=== PATIENT | female | born 2005 | race Caucasian/White ===

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

== ENCOUNTER 2023-04-30 09:25 | Emergency (ER) | payer OTHER ==
[2023-04-30] MEDS ORDERED: SODIUM CHLORIDE 0.9% 1,000 ML IV STA (09:42)
[2023-04-30] MEDS ORDERED: ONDANSETRON 4 MG/2 ML VIAL IVP STA (09:42)
[2023-04-30] MEDS ORDERED: HYDROCORTISONE SUCCINATE 100 MG/2 ML VIAL IV STA (09:43)
[2023-04-30 09:44] VITALS: TEMP 97.8
[2023-04-30] MEDS ORDERED: FAMOTIDINE 20 MG/2 ML VIAL IV STA (09:44)
--- NOTE | 2023-04-30 10:02 | ED ---
Nausea/Vomiting/Diarrhea HPI - General Chief complaint: Nausea/Vomiting/Diarrhea Stated complaint: vomiting Time Seen by Provider: 04/30/23 09:35 Source: patient, RN notes reviewed Mode of arrival: ambulatory Limitations: no limitations - History of Present Illness Initial comments: This is a 17-year-old female who presents to the emergency department for nausea, vomiting, and abdominal pain. States that for about 12 hours she's had pain in the epigastric region and has also proceeded to vomit multiple times. Her mother states that she has a history of adrenal insufficiency and is unable to take her hydrocortisone, and they're worried about her going into a crisis. She does have Zofran at home, but states that this has not been effective, and usually is not effective when she has these episodes. Denies any sick contacts. MD complaint: nausea, vomiting, abdominal pain - Related Data Home Medications Medication Instructions Recorded Confirmed Hydrocortisone [Cortef] 10 mg PO QAM 08/30/16 07/30/22 Cuvitru 10 gm IV SA 07/30/22 07/30/22 Hydrocortisone [Cortef] 7.5 mg PO HS 07/30/22 07/30/22 Levothyroxine Sodium [Synthroid] 62.5 mcg PO DAILY 07/30/22 07/30/22 Previous Rx's Medication Instructions Recorded Ondansetron Odt [Zofran Odt] 4 mg PO Q8HR PRN 2 Days #6 tab 07/30/22 Sulfamethox-Tmp 800-160Mg [Bactrim 1 tab PO Q12HR 7 Days #14 tab 07/30/22 DS 800-160 mg] Ondansetron Odt [Zofran Odt] 4 mg PO Q8HR PRN #20 tab 04/30/23 Prochlorperazine Suppository 25 mg RECTAL BID PRN #12 supp 04/30/23 [Compazine] Allergies Allergy/AdvReac Type Severity Reaction Status Date / Time No Known Allergies Allergy Verified 04/30/23 09:32 Review of Systems ROS Statement: Those systems with pertinent positive or pertinent negative responses have been documented in the HPI. ROS Other: All systems not noted in ROS Statement are negative. Past Medical History Additional Past Medical History / Comment(s): Common variable immune deficiency; adrenal insufficiency; Hashimotos Thyroiditis, alopecia, psoriasis History of Any Multi-Drug Resistant Organisms: None Reported Past Surgical History: No Surgical Hx Reported Past Psychological History: No Psychological Hx Reported Smoking Status: Never smoker Past Alcohol Use History: None Reported Past Drug Use History: None Reported General Exam Limitations: no limitations General appearance: alert, in no apparent distress Head exam: Present: atraumatic, normocephalic, normal inspection Respiratory exam: Present: normal lung sounds bilaterally. Absent: respiratory distress, wheezes, rales, rhonchi, stridor Cardiovascular Exam: Present: regular rate, normal rhythm, normal heart sounds. Absent: systolic murmur, diastolic murmur, rubs, gallop, clicks GI/Abdominal exam: Present: soft, tenderness (epigastric), normal bowel sounds. Absent: distended Neurological exam: Present: alert, oriented X3, CN II-XII intact Psychiatric exam: Present: normal affect, normal mood Skin exam: Present: warm, dry, intact, normal color. Absent: rash Course Vital Signs 04/30/23 04/30/23 04/30/23 09:29 10:22 12:15 Temperature 97.8 F Pulse Rate 85 67 85 Respiratory 22 22 20 Rate Blood Pressure 89/63 99/64 93/59 O2 Sat by Pulse 100 99 99 Oximetry 04/30/23 13:02 Temperature Pulse Rate 72 Respiratory 16 Rate Blood Pressure 93/56 O2 Sat by Pulse 100 Oximetry Medical Decision Making - Medical Decision Making This is a 17-year-old female who presents to the emergency department for abdominal pain, nausea, and vomiting. Was pt. sent in by a medical professional or institution? @ -No Did you speak to anyone other than the patient for history? @ -Her mother provided the information about her being unable to take her hydrocortisone. Did you review nursing and triage notes? @ -Yes, and I agree, it is accurate with regards to the patient's symptoms. Were old charts reviewed? @ -No Differential Diagnosis? @ -Differential Abdominal Pain Women: Appendicitis, Cholecystitis, diverticulosis, ischemic bowel, pancreatitis, hepatitis, UTI, gastroenteritis, AAA, incarcerated hernia, bowel obstruction, constipation, inflammatory bowel, hepatitis, peptic ulcer disease, splenic infarction, perforated viscus, vulvitis, ovarian torsion, PID, kidney stone, placenta abruption, this is not meant to be an all-inclusive list EKG interpreted by me (3pts min.)? @ -Not obtained X-rays interpreted by me (1pt min.)? @ -Not obtained CT interpreted by me (1pt min.)? @ -Not obtained U/S interpreted by me (1pt. min.)? @ -Gallbladder ultrasound obtained. My interpretation identifies no evidence of cholelithiasis. What testing was considered but not performed? (CT, X-rays, U/S, labs)? Why? @ -None What meds were considered but not given? Why? @ -None Did you discuss the management of the patient with other professionals? @ -No Did you reconcile home meds? @ -No Was smoking cessation discussed for >3mins.? @ -No Was critical care preformed (if so, how long)? @ -No Were there social determinants of health that impacted care today? How? (Homelessness, low income, unemployed, alcoholism, drug addiction, transportation, low edu. Level, literacy, decrease access to med. care, usp, rehab)? @ -No Was there de-escalation of care discussed even if they declined? (Discuss DNR or withdrawal of care, Hospice)? @ -No What co-morbidities impacted this encounter? (DM, HTN, Smoking, COPD, CAD, Cancer, CVA, Hep., AIDS, mental health diagnosis, sleep apnea, morbid obesity)? @ -Adrenal insufficiency Was patient admitted / discharged? @ -Discharged. Lab work obtained revealing leukocytosis and a mild elevation in liver enzymes. However, liver enzymes have been elevated for her in the past and have been higher than they are now. Gallbladder ultrasound obtained due to the associated epigastric pain. This revealed no acute process. Patient treated with IV fluids, Zofran, and Pepcid. She was also given a dose of hydrocortisone due to adrenal insufficiency. She did have some residual nausea which was treated well with Compazine. At that point she was tolerating oral intake and felt stable for discharge home. Prescription for zofran and compazine suppositories provided with dosing instructions reviewed. Otherwise advised she slowly advance her diet as tolerated and remain well-hydrated. Undiagnosed new problem with uncertain prognosis? @ -None Drug Therapy requiring intensive monitoring for toxicity (Heparin, Nitro, Insulin, Cardizem)? @ -None Were any procedures done? @ -None Diagnosis/symptom? @ -Gastroenteritis Acute, or Chronic, or Acute on Chronic? @ -Acute Uncomplicated (without systemic symptoms) or Complicated (systemic symptoms)? @ -Uncomplicated Side effects of treatment? @ -None Exacerbation, Progression, or Severe Exacerbation] @ -Not applicable Poses a threat to life or bodily function? @ -No Return precautions reviewed in depth, the patient is instructed to return to the emergency department with any new, worsening, or concerning symptoms. Patient verbalized understanding. This case was discussed in detail with the attending ED physician, Dr. Benz. Presentation, findings, and treatment plan discussed in detail as well. - Lab Data Result diagrams: 04/30/23 10:00 04/30/23 10:00 Lab Results 04/30/23 04/30/23 04/30/23 Range/Units 10:00 10:00 12:16 WBC 13.9 H (4.0-11.0) k/uL RBC 4.44 (3.80-5.40) m/uL Hgb 13.0 (11.4-16.0) gm/dL Hct 37.1 (34.0-46.0) % MCV 83.6 (80.0-100.0) fL MCH 29.4 (25.0-35.0) pg MCHC 35.1 (31.0-37.0) g/dL RDW 13.0 (11.5-15.5) % Plt Count 482 H (150-450) k/uL MPV 8.0 Neutrophils % 35 % Lymphocytes % 53 % Monocytes % 7 % Eosinophils % 1 % Basophils % 0 % Neutrophils # 4.9 (1.3-7.7) k/uL Lymphocytes # 7.3 H (1.0-4.8) k/uL Monocytes # 1.0 (0-1.0) k/uL Eosinophils # 0.2 (0-0.7) k/uL Basophils # 0.1 (0-0.2) k/uL Manual Slide Review Performed Reactive Lymphocytes Present RBC Morphology Normal Sodium 137 (137-145) mmol/L Potassium 3.8 (3.5-5.1) mmol/L Chloride 101 (98-107) mmol/L Carbon Dioxide 23 (22-30) mmol/L Anion Gap 13 mmol/L BUN 14 (7-17) mg/dL Creatinine 0.57 (0.52-1.04) mg/dL Est GFR (CKD-EPI)AfAm >90 (>60 ml/min/1.73 sqM) Est GFR (CKD-EPI)NonAf >90 (>60 ml/min/1.73 sqM) Glucose 88 (74-99) mg/dL Calcium 9.8 (8.4-10.2) mg/dL Total Bilirubin 0.8 (0.2-1.3) mg/dL AST 46 H (14-36) U/L ALT 35 H (4-34) U/L Alkaline Phosphatase 98 (38-126) U/L Total Protein 7.6 (6.3-8.2) g/dL Albumin 4.5 (3.5-5.0) g/dL Amylase 66 (30-110) U/L Lipase 60 (23-300) U/L HCG, Qual Not Detected Urine Color Yellow Urine Appearance Clear (Clear) Urine pH 7.0 (5.0-8.0) Ur Specific [place] 1.022 (1.001-1.035) Urine Protein Negative (Negative) Urine Glucose (UA) Negative (Negative) Urine Ketones Negative (Negative) Urine Blood Negative (Negative) Urine Nitrite Negative (Negative) Urine Bilirubin Negative (Negative) Urine Urobilinogen <2.0 (<2.0) mg/dL Ur Leukocyte Esterase Negative (Negative) Urine Opiates Screen (NotDetected) Ur Oxycodone Screen (NotDetected) Urine Methadone Screen (NotDetected) Ur Propoxyphene Screen (NotDetected) Ur Barbiturates Screen (NotDetected) U Tricyclic Antidepress (NotDetected) Ur Phencyclidine Scrn (NotDetected) Ur Amphetamines Screen (NotDetected) U Methamphetamines Scrn (NotDetected) U Benzodiazepines Scrn (NotDetected) Urine Cocaine Screen (NotDetected) U Marijuana (THC) Screen (NotDetected) 04/30/23 Range/Units 12:16 WBC (4.0-11.0) k/uL RBC (3.80-5.40) m/uL Hgb (11.4-16.0) gm/dL Hct (34.0-46.0) % MCV (80.0-100.0) fL MCH (25.0-35.0) pg MCHC (31.0-37.0) g/dL RDW (11.5-15.5) % Plt Count (150-450) k/uL MPV Neutrophils % % Lymphocytes % % Monocytes % % Eosinophils % % Basophils % % Neutrophils # (1.3-7.7) k/uL Lymphocytes # (1.0-4.8) k/uL Monocytes # (0-1.0) k/uL Eosinophils # (0-0.7) k/uL Basophils # (0-0.2) k/uL Manual Slide Review Reactive Lymphocytes RBC Morphology Sodium (137-145) mmol/L Potassium (3.5-5.1) mmol/L Chloride (98-107) mmol/L Carbon Dioxide (22-30) mmol/L Anion Gap mmol/L BUN (7-17) mg/dL Creatinine (0.52-1.04) mg/dL Est GFR (CKD-EPI)AfAm (>60 ml/min/1.73 sqM) Est GFR (CKD-EPI)NonAf (>60 ml/min/1.73 sqM) Glucose (74-99) mg/dL Calcium (8.4-10.2) mg/dL Total Bilirubin (0.2-1.3) mg/dL AST (14-36) U/L ALT (4-34) U/L Alkaline Phosphatase (38-126) U/L Total Protein (6.3-8.2) g/dL Albumin (3.5-5.0) g/dL Amylase (30-110) U/L Lipase (23-300) U/L HCG, Qual Urine Color Urine Appearance (Clear) Urine pH (5.0-8.0) Ur Specific [place] (1.001-1.035) Urine Protein (Negative) Urine Glucose (UA) (Negative) Urine Ketones (Negative) Urine Blood (Negative) Urine Nitrite (Negative) Urine Bilirubin (Negative) Urine Urobilinogen (<2.0) mg/dL Ur Leukocyte Esterase (Negative) Urine Opiates Screen Not Detected (NotDetected) Ur Oxycodone Screen Not Detected (NotDetected) Urine Methadone Screen Not Detected (NotDetected) Ur Propoxyphene Screen Not Detected (NotDetected) Ur Barbiturates Screen Not Detected (NotDetected) U Tricyclic Antidepress Not Detected (NotDetected) Ur Phencyclidine Scrn Not Detected (NotDetected) Ur Amphetamines Screen Not Detected (NotDetected) U Methamphetamines Scrn Not Detected (NotDetected) U Benzodiazepines Scrn Not Detected (NotDetected) Urine Cocaine Screen Not Detected (NotDetected) U Marijuana (THC) Screen Not Detected (NotDetected) - Radiology Data Radiology results: report reviewed, image reviewed Disposition Clinical Impression: Gastroenteritis Disposition: HOME SELF-CARE Instructions (If sedation given, give patient instructions): Gastroenteritis (ED), Acute Nausea and Vomiting (ED) Additional Instructions: Return to the emergency department with any new, worsening, or concerning symptoms. You can take the Zofran up to every 8 hours as needed for nausea and vomiting. The Compazine suppositories can also be used twice daily for the nausea and vomiting. Slowly advance your diet as tolerated and remain well- hydrated. Follow up with your primary care provider in 1-2 days. Prescriptions: Prochlorperazine Suppository [Compazine] 25 mg RECTAL BID PRN #12 supp PRN Reason: Nausea And Vomiting Ondansetron Odt [Zofran Odt] 4 mg PO Q8HR PRN #20 tab PRN Reason: Nausea And Vomiting Is patient prescribed a controlled substance at d/c from ED?: No Referrals: Lauren Rosario MD [Primary Care Provider] - 1-2 days
[2023-04-30 10:11] LABS: Basophils # (A) 0.1 k/uL (0-0.2); Basophils % (A) 0 %; Eosinophils # (A) 0.2 k/uL (0-0.7); Eosinophils % (A) 1 %; HCT 37.1 % (34.0-46.0); Lymphocytes # (A) 7.3 k/uL (1.0-4.8); Lymphocytes % (A) 53 %; MCH 29.4 pg (25.0-35.0); MCHC 35.1 g/dL (31.0-37.0); MCV 83.6 fL (80.0-100.0); Monocytes % (A) 7 %; Neutrophils # (A) 4.9 k/uL (1.3-7.7); Neutrophils % (A) 35 %; Platelet Count 482 k/uL (150-450); RBC 4.44 m/uL (3.80-5.40); WBC 13.9 k/uL (4.0-11.0)
[2023-04-30 10:32] LABS: HCG,Qualitative Serum Not Detected
[2023-04-30 10:33] LABS: ALT 35 U/L (4-34); AST 46 U/L (14-36); African American GFR (CKD) >90 (>60 ml/min/1.73 sqM); Albumin 4.5 g/dL (3.5-5.0); Alkaline Phosphatase 98 U/L (38-126); Amylase 66 U/L (30-110); Anion Gap 13 mmol/L; Blood Urea Nitrogen 14 mg/dL (7-17); Calcium 9.8 mg/dL (8.4-10.2); Carbon Dioxide 23 mmol/L (22-30); Chloride 101 mmol/L (98-107); Glucose 88 mg/dL (74-99); Lipase 60 U/L (23-300); Non-African American GFR(CKD) >90 (>60 ml/min/1.73 sqM); Potassium 3.8 mmol/L (3.5-5.1); Sodium 137 mmol/L (137-145); Total Bilirubin 0.8 mg/dL (0.2-1.3); Total Protein 7.6 g/dL (6.3-8.2)
[2023-04-30 11:05] LABS: RBC Morphology Normal; Reactive Lymphocytes Present
[2023-04-30] MEDS ORDERED: PROCHLORPERAZINE INJ 10 MG/2 ML VIAL IVP STA (11:27)
[2023-04-30] MEDS ORDERED: KETOROLAC 15 MG/ML 1 ML VIAL IVP STA (11:27)
--- NOTE | 2023-04-30 11:34 | US ---
EXAMINATION TYPE: US gallbladder DATE OF EXAM: 04/30/2023 COMPARISON: 07/30/[address] CLINICAL INDICATION: Female, 17 years old with history of Epigastric pain; epigastric pain, nausea an d vomiting, similar to episode on 07/30/22, pt is seeing forklift picker TECHNIQUE: Multiple sonographic images of the right upper quadrant are obtained. FINDINGS: EXAM MEASUREMENTS: Liver Length: 18.8cm Gallbladder Wall: 0.2 cm CBD: 0.52 cm (0.24cm in July) Right Kidney: 11.3x3.6x5.0 cm CLEAN UP WORKER NOTES: Pancreas: Tail obscured by overlying bowel gas Liver: wnl Gallbladder: wnl CBD: wnl but more dilated than in July Right Kidney: wnl IMPRESSION: 1. Hepatomegaly. 2. No gallstones. Common bile duct is at the upper limits of normal.
[2023-04-30 12:25] LABS: Appearance,Urine Clear (Clear); Bilirubin,Urine Negative (Negative); Blood,Urine Negative (Negative); Color,Urine Yellow; Glucose,Urine (UA) Negative (Negative); Ketones,Urine Negative (Negative); Leukocyte Esterase,Urine Negative (Negative); Nitrite,Urine Negative (Negative); Protein,Urine Negative (Negative); Specific Gravity,Urine 1.022 (1.001-1.035); Urobilinogen,Urine <2.0 mg/dL (<2.0)
[2023-04-30 12:35] LABS: Amphetamine Screen,Urine Not Detected (NotDetected); Barbiturate Screen,Urine Not Detected (NotDetected); Benzodiazepines Screen,Urine Not Detected (NotDetected); Cocaine Screen,Urine Not Detected (NotDetected); Methadone Screen, Urine Not Detected (NotDetected); Opiate Screen,Urine Not Detected (NotDetected); Oxycodone Screen, Urine Not Detected (NotDetected); Phencyclidine Screen,Urine Not Detected (NotDetected); Tricyclic Antidepressant,Urine Not Detected (NotDetected); Urn Cannabinoid Scrn Not Detected (NotDetected)
[2023-04-30 13:21] VITALS: BP 93/56; PULSE 72; RESP 16
== END 2023-04-30 13:02 | disposition home or self-care (01) ==
LOC: EC 09:25
DX: K52.9 Noninfective gastroenteritis and colitis, unspecified (principal)
CPT/HCPCS: 36415; 80053; 82150; 83690; 85025; 81003; 84703; 80306; 76705; 99284; 96374; 96375 ×4; 96361; J0780; J1720; J2405; J3490; J1885

== ENCOUNTER 2023-05-22 18:57 | Observation (INO) | payer OTHER ==
[2023-05-22 19:32] LABS: Glucose,Whole Blood 92 mg/dL (70-110)
--- NOTE | 2023-05-22 19:45 | XR ---
EXAMINATION TYPE: XR KUB DATE OF EXAM: 05/22/2023 7:37 PM CLINICAL HISTORY: Epigastric pain and multiple episodes of vomiting TECHNIQUE: 2 upright views COMPARISON: None. FINDINGS: Visualized lung bases and pleural spaces: No acute findings. There is a gas-fluid level within the stomach, consistent with the stomach being approximately 85% fl uid-filled. Scattered gas is seen in non-distended small bowel loops. Gas and fecal material is seen in non-distended colon. No pneumoperitoneum or pneumatosis. There is hepatomegaly, with the liver measuring approximately 24 cm CC at the mid-axillary line. No o ther evidence of visceromegaly. No abnormal calcifications. No focal skeletal findings. IMPRESSION: Fluid-filled stomach noted Hepatomegaly.
[2023-05-22] MEDS ORDERED: SODIUM CHLORIDE 0.9% 1,000 ML IV ONE ×2 (19:47→22:18)
[2023-05-22] MEDS ORDERED: MAG HYDROX/AL HYDROX/SIMETH 30 ML, HYOSCYAMINE ELIXIR 10 ML, LIDOCAINE 2% GLYDO JELLY 1... PO STA ×3 (19:47)
[2023-05-22 20:24] LABS: ALT 65 U/L (4-34); AST 86 U/L (14-36); African American GFR (CKD) >90 (>60 ml/min/1.73 sqM); Albumin 4.5 g/dL (3.5-5.0); Alkaline Phosphatase 98 U/L (38-126); Amylase 77 U/L (30-110); Anion Gap 9 mmol/L; Blood Urea Nitrogen 9 mg/dL (7-17); Calcium 9.9 mg/dL (8.4-10.2); Carbon Dioxide 25 mmol/L (22-30); Chloride 102 mmol/L (98-107); Glucose 80 mg/dL (74-99); Lipase 78 U/L (23-300); Non-African American GFR(CKD) >90 (>60 ml/min/1.73 sqM); Sodium 136 mmol/L (137-145); Total Bilirubin 1.1 mg/dL (0.2-1.3); Total Protein 7.9 g/dL (6.3-8.2)
[2023-05-22 20:36] LABS: Potassium 5.7 mmol/L (3.5-5.1)
[2023-05-22 20:41] LABS: HCG,Quantitative Serum <2.4 mIU/mL
[2023-05-22 21:20] LABS: HCT 38.9 % (34.0-46.0); HGB 13.1 gm/dL (11.4-16.0); MCHC 33.7 g/dL (31.0-37.0); Mean Platelet Volume 7.8; Platelet Count 411 k/uL (150-450); RBC 4.52 m/uL (3.80-5.40); WBC 10.3 k/uL (4.0-11.0)
[2023-05-22 21:25] LABS: T4, Free (Free Thyroxine) 0.94 ng/dL (0.78-2.19)
[2023-05-22] MEDS ORDERED: ONDANSETRON 4 MG/2 ML VIAL IVP STA (21:48)
[2023-05-22] MEDS ORDERED: DICYCLOMINE 20 MG TAB PO STA (21:48)
[2023-05-22 22:22] LABS: Band Neutrophils % 4 %; Lymphocytes # (M) 7.31 k/uL (1.0-4.8); Monocytes # (M) 0.82 k/uL (0-1.0); Neutrophils % (M) 17 %; Nucleated Red Blood Cells 0 /100 WBC (0-0); Reactive Lymphocytes Present; Total Cells Counted 100
[2023-05-22] MEDS ORDERED: MORPHINE SULFATE 4 MG/ML SYRINGE IVP STA (22:33)
[2023-05-22] MEDS ORDERED: METOCLOPRAMIDE 5 MG/ML 2 ML VIAL IVP STA (22:33)
--- NOTE | 2023-05-23 00:09 | ED ---
General Adult HPI - General Chief complaint: Abdominal Pain Stated complaint: Abd pain Time Seen by Provider: 05/22/23 19:46 Source: patient, family, RN notes reviewed Mode of arrival: ambulatory Limitations: no limitations - History of Present Illness Initial comments: 17-year-old female with a past medical history significant for CVID, Mercy's and adrenal insufficiency presents the emergency department with a chief complaint of acute nausea and vomiting. Patient reports worsening nausea, vomiting and has had multiple episodes today. She is complaining of mid epigastric pain. The pain does not radiate anywhere else. She has not taken anything for his symptoms. She does report some slight dizziness and lightheadedness and near syncope after walking to x-ray. She has been taking her medications as prescribed. Denies recent alcohol or illicit drug use. - Related Data Home Medications Medication Instructions Recorded Confirmed Hydrocortisone [Cortef] 10 mg PO QAM 08/30/16 07/30/22 Cuvitru 10 gm IV SA 07/30/22 07/30/22 Hydrocortisone [Cortef] 7.5 mg PO HS 07/30/22 07/30/22 Levothyroxine Sodium [Synthroid] 62.5 mcg PO DAILY 07/30/22 07/30/22 Previous Rx's Medication Instructions Recorded Ondansetron Odt [Zofran Odt] 4 mg PO Q8HR PRN 2 Days #6 tab 07/30/22 Sulfamethox-Tmp 800-160Mg [Bactrim 1 tab PO Q12HR 7 Days #14 tab 07/30/22 DS 800-160 mg] Ondansetron Odt [Zofran Odt] 4 mg PO Q8HR PRN #20 tab 04/30/23 Prochlorperazine Suppository 25 mg RECTAL BID PRN #12 supp 04/30/23 [Compazine] Allergies Allergy/AdvReac Type Severity Reaction Status Date / Time No Known Allergies Allergy Verified 04/30/23 09:32 Review of Systems ROS Statement: Those systems with pertinent positive or pertinent negative responses have been documented in the HPI. ROS Other: All systems not noted in ROS Statement are negative. Past Medical History Additional Past Medical History / Comment(s): Common variable immune deficiency; adrenal insufficiency; Hashimotos Thyroiditis, alopecia, psoriasis History of Any Multi-Drug Resistant Organisms: None Reported Past Surgical History: No Surgical Hx Reported Past Psychological History: No Psychological Hx Reported Smoking Status: Never smoker Past Alcohol Use History: None Reported Past Drug Use History: None Reported General Exam - General Exam Comments Initial Comments: General: Alert, in no acute distress Head: atraumatic normocephalic. Eyes PERRL, EOMI intact, mucous membranes moist Respiratory: Lungs clear to auscultation bilaterally Cardiovascular: Regular rate and rhythm Abdominal: Soft without guarding or rebound, mild epigastric tenderness. Rodriguez sign negative Extremities: Normal inspection with full range of motion and normal capillary refill Neuroogic: alert and oriented 3, CN II-XII intact, able to ambulate with steady gait Skin: warm dry and intact with normal color Limitations: no limitations Course Vital Signs 05/22/23 05/22/23 05/22/23 19:08 22:00 22:30 Temperature 97.8 F Pulse Rate 92 80 83 Respiratory 20 17 17 Rate Blood Pressure 105/74 97/66 107/82 O2 Sat by Pulse 99 98 Oximetry 05/22/23 05/22/23 05/23/23 22:47 23:00 00:30 Temperature Pulse Rate 83 89 79 Respiratory 17 18 18 Rate Blood Pressure 110/76 110/76 103/67 O2 Sat by Pulse 100 100 100 Oximetry - Reevaluation(s) Reevaluation #1: 05/22/2023 22:03 reevaluated. Patient Still complaining of pain. Additional medications ordered. Agreeable with the plan for CT imaging. Reevaluation #2: 05/23/23 01:36 Reevaluated. Patient continues to have nausea vomiting and abdominal pain. Updated on results. Agreeable with the plan for admission. EKG Findings - EKG Comments: EKG Findings:: I interpreted the following: EKG performed at 19:51 rate 72 bpm normal sinus rhythm. MS interval 137, QRS ration 97, QT/QTc 434/459 mg Medical Decision Making - Medical Decision Making Was pt. sent in by a medical professional or institution (, PA, DRYWALL STRIPPER, urgent care, hospital, or jail...) When possible be specific @ -[No] Did you speak to anyone other than the patient for history (EMS, parent, family, police, friend...)? What history was obtained from this source @ -[No] Did you review nursing and triage notes (agree or disagree)? Why? @ -[I reviewed and agree with nursing and triage notes] Were old charts reviewed (outside hosp., previous admission, EMS record, old EKG, old radiological studies, urgent care reports/EKG's, jail records)? Report findings @ -[No old charts were reviewed] Differential Diagnosis (chest pain, altered mental status, abdominal pain women, abdominal pain men, vaginal bleeding, weakness, fever, dyspnea, syncope, headache, dizziness, GI bleed, back pain, seizure, CVA, palpatations, mental health, musculoskeletal)? @ -[not applicable] EKG interpreted by me (3pts min.). @ -[As above] X-rays interpreted by me (1pt min.). @ -[None done] CT interpreted by me (1pt min.). @ -Yes U/S interpreted by me (1pt. min.). @ -[None done] What testing was considered but not performed or refused? (CT, X-rays, U/S, labs)? Why? @ -[None] What meds were considered but not given or refused? Why? @ -[None] Did you discuss the management of the patient with other professionals (professionals i.e. , PA, DRYWALL STRIPPER, lab, RT, psych nurse, geriatric social worker, assistant store manager trainee, teacher, customer service security officer, case packer)? Give summary @ -Dr. Bender who agrees and accepts the patient for admission Was smoking cessation discussed for >3mins.? @ -[No] Was critical care preformed (if so, how long)? @ -[No] Were there social determinants of health that impacted care today? How? (Homelessness, low income, unemployed, alcoholism, drug addiction, tr ansportation, low edu. Level, literacy, decrease access to med. care, half-way, rehab)? @ -[No] Was there de-escalation of care discussed even if they declined (Discuss DNR or withdrawal of care, Hospice)? DNR status @ -[No] What co-morbidities impacted this encounter? (DM, HTN, Smoking, COPD, CAD, Cancer, CVA, ARF, Chemo, Hep., AIDS, mental health diagnosis, sleep apnea, morbid obesity)? @ -[None] Was patient admitted / discharged? Hospital course, mention meds given and route, prescriptions, significant lab abnormalities, going to OR and other pertinent info. @ -Admission. This is a 17-year-old female with a past medical history significant for Mercy's, adrenal insufficiency, CVID who presents emergency Department with acute nausea and vomiting. Patient had a thorough history and physical exam performed while in the ED. vital signs stable upon evaluation. Afebrile. Patient reevaluated multiple times without symptomatic improvement of symptoms. Patient had laboratory studies which revealed WBCs 10.3, hemoglobin 13.1 sodium 136, potassium 5.7 BUN 9, creatinine 0.45 AST 86, ALTs 65 TSH is 8.4 free T4 is 0.94 hCG negative. Urinalysis negative. Covid and influenza RSV are negative. Patient had CT imaging which was essentially unremarkable. No acute intra- abdominal process to account for patient's symptoms. Despite multiple medications including Bentyl, Reglan, Zofran, GI cocktail patient continues to have persistent vomiting. Case is discussed with odin Wlikerson who agrees and accepts the patient for further observation and fluid resuscitation. Case is discussed with PARISH Crowell who agrees with plan of care Undiagnosed new problem with uncertain prognosis? @ -[No] Drug Therapy requiring intensive monitoring for toxicity (Heparin, Nitro, Insulin, Cardizem)? @ -[No] Were any procedures done? @ -[No] Diagnosis/symptom? @ -Intractable Nausea and Vomiting - Intractable Abdominal Pain Acute, or Chronic, or Acute on Chronic? @ -Acute Uncomplicated (without systemic symptoms) or Complicated (systemic symptoms)? @ -Uncomplicated Side effects of treatment? @ -[No] Exacerbation, Progression, or Severe Exacerbation? @ -[No] Poses a threat to life or bodily function? How? (Chest pain, USA, VT, pneumonia, PE, COPD, DKA, ARF, appy, cholecystitis, CVA, Diverticulitis, Homicidal, Suicidal, threat to staff... and all critical care pts) @ -Low likelihood - Lab Data Result diagrams: 05/22/23 20:27 05/22/23 20:03 Lab Results 05/22/23 05/22/23 05/22/23 Range/Units 19:30 20:03 20:03 WBC (4.0-11.0) k/uL RBC (3.80-5.40) m/uL Hgb (11.4-16.0) gm/dL Hct (34.0-46.0) % MCV (80.0-100.0) fL MCH (25.0-35.0) pg MCHC (31.0-37.0) g/dL RDW (11.5-15.5) % Plt Count (150-450) k/uL MPV Neutrophils % (Manual) % Band Neuts % (Manual) % Lymphocytes % (Manual) % Monocytes % (Manual) % Neutrophils # (Manual) (1.3-7.7) k/uL Lymphocytes # (Manual) (1.0-4.8) k/uL Monocytes # (Manual) (0-1.0) k/uL Nucleated RBCs (0-0) /100 WBC Manual Slide Review Reactive Lymphocytes Sodium 136 L (137-145) mmol/L Potassium 5.7 H (3.5-5.1) mmol/L Chloride 102 (98-107) mmol/L Carbon Dioxide 25 (22-30) mmol/L Anion Gap 9 mmol/L BUN 9 (7-17) mg/dL Creatinine 0.45 L (0.52-1.04) mg/dL Est GFR (CKD-EPI)AfAm >90 (>60 ml/min/1.73 sqM) Est GFR (CKD-EPI)NonAf >90 (>60 ml/min/1.73 sqM) Glucose 80 (74-99) mg/dL POC Glucose (mg/dL) 92 (70-110) mg/dL POC Glu Claims Support Specialist RADHA Kirill Hartman Plasma Lactic Acid Steve (0.7-2.0) mmol/L Calcium 9.9 (8.4-10.2) mg/dL Total Bilirubin 1.1 (0.2-1.3) mg/dL AST 86 H (14-36) U/L ALT 65 H (4-34) U/L Alkaline Phosphatase 98 (38-126) U/L Total Protein 7.9 (6.3-8.2) g/dL Albumin 4.5 (3.5-5.0) g/dL Amylase 77 (30-110) U/L Lipase 78 (23-300) U/L TSH 8.410 H (0.465-4.680) mIU/L Free T4 0.94 (0.78-2.19) ng/dL HCG, Quant <2.4 mIU/mL Urine Color Urine Appearance (Clear) Urine pH (5.0-8.0) Ur Specific Lincoln (1.001-1.035) Urine Protein (Negative) Urine Glucose (UA) (Negative) Urine Ketones (Negative) Urine Blood (Negative) Urine Nitrite (Negative) Urine Bilirubin (Negative) Urine Urobilinogen (<2.0) mg/dL Ur Leukocyte Esterase (Negative) Urine RBC (0-5) /hpf Urine WBC (0-5) /hpf Ur Squamous Epith Cells (0-4) /hpf Urine Bacteria (None) /hpf Urine Opiates Screen (NotDetected) Ur Oxycodone Screen (NotDetected) Urine Methadone Screen (NotDetected) Ur Propoxyphene Screen (NotDetected) Ur Barbiturates Screen (NotDetected) U Tricyclic Antidepress (NotDetected) Ur Phencyclidine Scrn (NotDetected) Ur Amphetamines Screen (NotDetected) U Methamphetamines Scrn (NotDetected) U Benzodiazepines Scrn (NotDetected) Urine Cocaine Screen (NotDetected) U Marijuana (THC) Screen (NotDetected) Influenza Type A (PCR) Not Detected (Not Detectd) Influenza Type B (PCR) Not Detected (Not Detectd) RSV (PCR) Not Detected (Not Detectd) SARS-CoV-2 (PCR) Not Detected (Not Detectd) 05/22/23 05/22/23 05/23/23 Range/Units 20:27 20:50 00:29 WBC 10.3 (4.0-11.0) k/uL RBC 4.52 (3.80-5.40) m/uL Hgb 13.1 (11.4-16.0) gm/dL Hct 38.9 (34.0-46.0) % MCV 86.0 (80.0-100.0) fL MCH 29.0 (25.0-35.0) pg MCHC 33.7 (31.0-37.0) g/dL RDW 13.0 (11.5-15.5) % Plt Count 411 (150-450) k/uL MPV 7.8 Neutrophils % (Manual) 17 % Band Neuts % (Manual) 4 % Lymphocytes % (Manual) 71 % Monocytes % (Manual) 8 % Neutrophils # (Manual) 2.10 (1.3-7.7) k/uL Lymphocytes # (Manual) 7.31 H (1.0-4.8) k/uL Monocytes # (Manual) 0.82 (0-1.0) k/uL Nucleated RBCs 0 (0-0) /100 WBC Manual Slide Review Performed Reactive Lymphocytes Present Sodium (137-145) mmol/L Potassium (3.5-5.1) mmol/L Chloride (98-107) mmol/L Carbon Dioxide (22-30) mmol/L Anion Gap mmol/L BUN (7-17) mg/dL Creatinine (0.52-1.04) mg/dL Est GFR (CKD-EPI)AfAm (>60 ml/min/1.73 sqM) Est GFR (CKD-EPI)NonAf (>60 ml/min/1.73 sqM) Glucose (74-99) mg/dL POC Glucose (mg/dL) (70-110) mg/dL POC Glu Claims Support Specialist ID Plasma Lactic Acid Steve 1.2 (0.7-2.0) mmol/L Calcium (8.4-10.2) mg/dL Total Bilirubin (0.2-1.3) mg/dL AST (14-36) U/L ALT (4-34) U/L Alkaline Phosphatase (38-126) U/L Total Protein (6.3-8.2) g/dL Albumin (3.5-5.0) g/dL Amylase (30-110) U/L Lipase (23-300) U/L TSH (0.465-4.680) mIU/L Free T4 (0.78-2.19) ng/dL HCG, Quant mIU/mL Urine Color Yellow Urine Appearance Clear (Clear) Urine pH 7.0 (5.0-8.0) Ur Specific Lincoln 1.005 (1.001-1.035) Urine Protein Negative (Negative) Urine Glucose (UA) Negative (Negative) Urine Ketones Negative (Negative) Urine Blood Negative (Negative) Urine Nitrite Negative (Negative) Urine Bilirubin Negative (Negative) Urine Urobilinogen <2.0 (<2.0) mg/dL Ur Leukocyte Esterase Small H (Negative) Urine RBC 1 (0-5) /hpf Urine WBC 10 H (0-5) /hpf Ur Squamous Epith Cells 6 H (0-4) /hpf Urine Bacteria Rare H (None) /hpf Urine Opiates Screen (NotDetected) Ur Oxycodone Screen (NotDetected) Urine Methadone Screen (NotDetected) Ur Propoxyphene Screen (NotDetected) Ur Barbiturates Screen (NotDetected) U Tricyclic Antidepress (NotDetected) Ur Phencyclidine Scrn (NotDetected) Ur Amphetamines Screen (NotDetected) U Methamphetamines Scrn (NotDetected) U Benzodiazepines Scrn (NotDetected) Urine Cocaine Screen (NotDetected) U Marijuana (THC) Screen (NotDetected) Influenza Type A (PCR) (Not Detectd) Influenza Type B (PCR) (Not Detectd) RSV (PCR) (Not Detectd) SARS-CoV-2 (PCR) (Not Detectd) 05/23/23 Range/Units 00:29 WBC (4.0-11.0) k/uL RBC (3.80-5.40) m/uL Hgb (11.4-16.0) gm/dL Hct (34.0-46.0) % MCV (80.0-100.0) fL MCH (25.0-35.0) pg MCHC (31.0-37.0) g/dL RDW (11.5-15.5) % Plt Count (150-450) k/uL MPV Neutrophils % (Manual) % Band Neuts % (Manual) % Lymphocytes % (Manual) % Monocytes % (Manual) % Neutrophils # (Manual) (1.3-7.7) k/uL Lymphocytes # (Manual) (1.0-4.8) k/uL Monocytes # (Manual) (0-1.0) k/uL Nucleated RBCs (0-0) /100 WBC Manual Slide Review Reactive Lymphocytes Sodium (137-145) mmol/L Potassium (3.5-5.1) mmol/L Chloride (98-107) mmol/L Carbon Dioxide (22-30) mmol/L Anion Gap mmol/L BUN (7-17) mg/dL Creatinine (0.52-1.04) mg/dL Est GFR (CKD-EPI)AfAm (>60 ml/min/1.73 sqM) Est GFR (CKD-EPI)NonAf (>60 ml/min/1.73 sqM) Glucose (74-99) mg/dL POC Glucose (mg/dL) (70-110) mg/dL POC Glu Claims Support Specialist ID Plasma Lactic Acid Steve (0.7-2.0) mmol/L Calcium (8.4-10.2) mg/dL Total Bilirubin (0.2-1.3) mg/dL AST (14-36) U/L ALT (4-34) U/L Alkaline Phosphatase (38-126) U/L Total Protein (6.3-8.2) g/dL Albumin (3.5-5.0) g/dL Amylase (30-110) U/L Lipase (23-300) U/L TSH (0.465-4.680) mIU/L Free T4 (0.78-2.19) ng/dL HCG, Quant mIU/mL Urine Color Urine Appearance (Clear) Urine pH (5.0-8.0) Ur Specific Lincoln (1.001-1.035) Urine Protein (Negative) Urine Glucose (UA) (Negative) Urine Ketones (Negative) Urine Blood (Negative) Urine Nitrite (Negative) Urine Bilirubin (Negative) Urine Urobilinogen (<2.0) mg/dL Ur Leukocyte Esterase (Negative) Urine RBC (0-5) /hpf Urine WBC (0-5) /hpf Ur Squamous Epith Cells (0-4) /hpf Urine Bacteria (None) /hpf Urine Opiates Screen Detected H (NotDetected) Ur Oxycodone Screen Not Detected (NotDetected) Urine Methadone Screen Not Detected (NotDetected) Ur Propoxyphene Screen Not Detected (NotDetected) Ur Barbiturates Screen Not Detected (NotDetected) U Tricyclic Antidepress Not Detected (NotDetected) Ur Phencyclidine Scrn Not Detected (NotDetected) Ur Amphetamines Screen Not Detected (NotDetected) U Methamphetamines Scrn Not Detected (NotDetected) U Benzodiazepines Scrn Not Detected (NotDetected) Urine Cocaine Screen Not Detected (NotDetected) U Marijuana (THC) Screen Not Detected (NotDetected) Influenza Type A (PCR) (Not Detectd) Influenza Type B (PCR) (Not Detectd) RSV (PCR) (Not Detectd) SARS-CoV-2 (PCR) (Not Detectd) Disposition Clinical Impression: Intractable nausea and vomiting, Intractable abdominal pain Disposition: ADMITTED IP TO THIS HOSP Condition: Fair Is patient prescribed a controlled substance at d/c from ED?: No Time of Disposition: 01:37
--- NOTE | 2023-05-23 00:48 | CT ---
EXAM: CT Abdomen and Pelvis With Intravenous Contrast CLINICAL HISTORY: ITS.REASON CT Reason: r/out obstruction TECHNIQUE: Axial computed tomography images of the abdomen and pelvis with intravenous contrast. CTDI is 10.2 mGy and DLP is 470.5 mGy-cm. This CT exam was performed using one or more of the following dose reduction techniques: automated exposure control, adjustment of the mA and/or kV according to patient size, and/or use of iterative reconstruction technique. COMPARISON: No relevant prior studies available. FINDINGS: Lung bases: Unremarkable. No mass. No consolidation. ABDOMEN: Liver: Unremarkable. No mass. Gallbladder and bile ducts: Unremarkable. No calcified stones. No ductal dilation. Pancreas: Unremarkable. No mass. No ductal dilation. Spleen: Unremarkable. No splenomegaly. Adrenals: Unremarkable. No mass. Kidneys and ureters: Unremarkable. No solid mass. No hydronephrosis. Stomach and bowel: Unremarkable. No acute diverticulitis. No colitis. No small bowel obstruction. No free intraperitoneal air. PELVIS: Appendix: Nonvisualized appendix however, no secondary signs of acute appendicitis. Bladder: Unremarkable. No mass. Reproductive: Unremarkable as visualized. ABDOMEN and PELVIS: Intraperitoneal space: LEFT ovarian cystic lesion measures 3.1 x 2.2 cm. Mild free fluid in the pelvis. Pelvic ultrasound correlation recommended. No free air. Bones/joints: No acute fracture. No dislocation. Soft tissues: Unremarkable. Vasculature: Unremarkable. No abdominal aortic aneurysm. Lymph nodes: Unremarkable. No enlarged lymph nodes. IMPRESSION: 1. No acute diverticulitis. No colitis. No small bowel obstruction. No free intraperitoneal air. 2. LEFT ovarian cystic lesion measures 3.1 x 2.2 cm. Mild free fluid in the pelvis. Pelvic ultrasound correlation recommended. 3. Nonvisualized appendix however, no secondary signs of acute appendicitis.
[2023-05-23 01:13] LABS: Bacteria,Urine Rare /hpf; RBC,Urine 1 /hpf (0-5); Squamous Epithelial Cell,Urine 6 /hpf (0-4); WBC,Urine 10 /hpf (0-5)
[2023-05-23 01:22] LABS: Appearance,Urine Clear (Clear); Color,Urine Yellow; Specific Gravity,Urine 1.005 (1.001-1.035)
[2023-05-23 01:23] LABS: Bilirubin,Urine Negative (Negative); Blood,Urine Negative (Negative); Glucose,Urine (UA) Negative (Negative); Ketones,Urine Negative (Negative); Leukocyte Esterase,Urine Small (Negative); Nitrite,Urine Negative (Negative); Protein,Urine Negative (Negative); Urobilinogen,Urine <2.0 mg/dL (<2.0)
[2023-05-23] MEDS ORDERED: ONDANSETRON 4 MG/2 ML VIAL IVP STA (01:37)
[2023-05-23] MEDS ORDERED: MORPHINE SULFATE 4 MG/ML SYRINGE IVP STA (01:37)
[2023-05-23] MEDS ORDERED: NALOXONE 0.4 MG/ML 1 ML VIAL IV PRN (01:51)
[2023-05-23] MEDS ORDERED: ONDANSETRON 4 MG/2 ML VIAL IVP PRN (01:51)
[2023-05-23] MEDS ORDERED: SODIUM CHLORIDE 0.9% 1,000 ML IV SCH (02:00)
[2023-05-23 02:54] LABS: Amphetamine Screen,Urine Not Detected (NotDetected); Barbiturate Screen,Urine Not Detected (NotDetected); Benzodiazepines Screen,Urine Not Detected (NotDetected); Cocaine Screen,Urine Not Detected (NotDetected); Methadone Screen, Urine Not Detected (NotDetected); Opiate Screen,Urine Detected (NotDetected); Oxycodone Screen, Urine Not Detected (NotDetected); Phencyclidine Screen,Urine Not Detected (NotDetected); Tricyclic Antidepressant,Urine Not Detected (NotDetected); Urn Cannabinoid Scrn Not Detected (NotDetected)
[2023-05-23 03:40] LABS: African American GFR (CKD) >90 (>60 ml/min/1.73 sqM); Anion Gap 9 mmol/L; Blood Urea Nitrogen 8 mg/dL (7-17); Calcium 8.6 mg/dL (8.4-10.2); Carbon Dioxide 19 mmol/L (22-30); Chloride 107 mmol/L (98-107); Glucose 88 mg/dL (74-99); Non-African American GFR(CKD) >90 (>60 ml/min/1.73 sqM); Potassium 4.3 mmol/L (3.5-5.1); Sodium 135 mmol/L (137-145)
[2023-05-23 03:59] LABS: Basophils # (A) 0.1 k/uL (0-0.2); Basophils % (A) 1 %; Eosinophils # (A) 0.1 k/uL (0-0.7); Eosinophils % (A) 1 %; HCT 34.1 % (34.0-46.0); HGB 11.7 gm/dL (11.4-16.0); Lymphocytes % (A) 52 %; MCH 29.6 pg (25.0-35.0); MCHC 34.3 g/dL (31.0-37.0); MCV 86.3 fL (80.0-100.0); Mean Platelet Volume 8.8; Monocytes % (A) 9 %; Neutrophils # (A) 3.8 k/uL (1.3-7.7); Neutrophils % (A) 33 %; Platelet Count 352 k/uL (150-450); RBC 3.95 m/uL (3.80-5.40); RDW 13.2 % (11.5-15.5); WBC 11.4 k/uL (4.0-11.0)
--- NOTE | 2023-05-23 04:11 | P.HPIM ---
History of Present Illness H&P Date: 05/23/23 Patient is a 17-year-old female with a PMH of CVID, Mercy's thyroiditis, and adrenal insufficiency who presents to the emergency room with complaints of intractable nausea and vomiting. Patient is accompanied by her mother who supplemented the history. Patient reports that her symptoms started roughly 2 days ago and have persisted with constant episodes of nonbloody nonbilious emesis. States that she may have missed multiple doses of her hydrocortisone at home over the past week. Denies experiencing fever, chills, chest pain, shortness of breath, diarrhea. Patient states that she often has these symptoms when she is having an adrenal insufficiency episode. She normally follows at [facility] and also has not seen her architectural intern for about a year. In the emergency room a CT abdomen and pelvis revealed a left-sided ovarian cyst with pelvic ultrasound recommended. EKG revealed sinus rhythm at 72 bpm with an incomplete right bundle branch block as reviewed by me. Laboratory evaluation was remarkable for leukocytosis of 11.4, sodium 135, CO2 19, unremarkable UA, u rine tox serology positive for opiates with influenza screen negative. The patient's vitals upon arrival repeat 105/74, pulse 92, temp 97.8F, and SpO2 96% on room air. ED documentation reviewed and case discussed with ED provider. Review of systems: Pertinent positives and negatives as discussed in HPI, a complete review of systems was performed and all other systems are negative. Physical examination: Vital signs reviewed General: non toxic, no distress, appears at stated age, normal weight Derm: no unusual rashes/lesions, warm Head: atraumatic, normocephalic, symmetric Eyes: EOMI, no lid lag, anicteric sclera, pupils equal round reactive to light ENT: Nose and ears atraumatic Neck: No cervical lymphadenopathy, trachea midline, supple Mouth: no lip lesion, mucus membranes moist Cardiovascular: S1S2 reg, no murmur, positive dorsalis pedis pulse bilateral, no edema Lungs: CTA bilateral, no rhonchi, no rales, no accessory muscle use Abdominal: soft, nontender to palpation, no guarding Ext: muscle strength 5 out of 5 in all 4 extremities grossly, no gross muscle atrophy, no contractures, Neuro: CN II-XI grossly intact, no gross focal neuro deficits Psych: Alert, oriented, appropriate affect Assessment: Intractable nausea and vomiting, unclear etiology, possibly adrenal insufficiency Leukocytosis, likely secondary to acute stressor with no signs of active infection at this time Chronic conditions: CVID, hypothyroidism Imaging: In the emergency room a CT abdomen and pelvis revealed a left-sided ovarian cyst with pelvic ultrasound recommended. EKG revealed sinus rhythm at 72 bpm with an incomplete right bundle branch block as reviewed by me. Data Review: Laboratory evaluation was remarkable for leukocytosis of 11.4, sodium 135, CO2 19, unremarkable UA, urine tox serology positive for opiates with influenza screen negative. The patient's vitals upon arrival repeat 105/74, pulse 92, temp 97.8F, and SpO2 96% on room air. Plan: Continue with antiemetics Check cortisol levels Resume patient's home Cortef doses IV fluids with normal saline 75 mL/h Monitor CBC DVT prophylaxis: Lovenox subcu The patient is admitted with an anticipated less than 2 midnight stay for evaluation of nausea and vomiting CODE STATUS: Full Code Discussed with: Patient Anticipated discharge place: Home Past Medical History Additional Past Medical History / Comment(s): Common variable immune deficiency; adrenal insufficiency; Hashimotos Thyroiditis, alopecia, psoriasis History of Any Multi-Drug Resistant Organisms: None Reported Past Surgical History: No Surgical Hx Reported Past Psychological History: No Psychological Hx Reported Smoking Status: Never smoker Past Alcohol Use History: None Reported Past Drug Use History: None Reported Medications and Allergies Home Medications Medication Instructions Recorded Confirmed Type Hydrocortisone [Cortef] 10 mg PO QAM 08/30/16 07/30/22 History Cuvitru 10 gm IV SA 07/30/22 07/30/22 History Hydrocortisone [Cortef] 7.5 mg PO HS 07/30/22 07/30/22 History Levothyroxine Sodium [Synthroid] 62.5 mcg PO DAILY 07/30/22 07/30/22 History Ondansetron Odt [Zofran Odt] 4 mg PO Q8HR PRN 2 Days #6 tab 07/30/22 Rx Sulfamethox-Tmp 800-160Mg [Bactrim 1 tab PO Q12HR 7 Days #14 tab 07/30/22 Rx DS 800-160 mg] Ondansetron Odt [Zofran Odt] 4 mg PO Q8HR PRN #20 tab 04/30/23 Rx Prochlorperazine Suppository 25 mg RECTAL BID PRN #12 supp 04/30/23 Rx [Compazine] Allergies Allergy/AdvReac Type Severity Reaction Status Date / Time No Known Allergies Allergy Verified 04/30/23 09:32 Physical Exam Vitals: Vital Signs Temp Pulse Resp BP Pulse Ox 05/23/23 00:30 79 18 103/67 100 05/22/23 23:00 89 18 110/76 100 05/22/23 22:47 83 17 110/76 100 05/22/23 22:30 83 17 107/82 98 05/22/23 22:00 80 17 97/66 99 05/22/23 19:08 97.8 F 92 20 105/74 Intake and Output 05/22/23 05/22/23 05/23/23 14:59 22:59 06:59 Other: Weight 53.524 kg Results CBC & Chem 7: 05/23/23 02:10 05/23/23 02:10 Labs: Abnormal Lab Results - Last 24 Hours (Table) 05/22/23 05/22/23 05/23/23 Range/Units 20:03 20:27 00:29 WBC (4.0-11.0) k/uL Lymphocytes # (Manual) 7.31 H (1.0-4.8) k/uL Sodium 136 L (137-145) mmol/L Potassium 5.7 H (3.5-5.1) mmol/L Carbon Dioxide (22-30) mmol/L Creatinine 0.45 L (0.52-1.04) mg/dL AST 86 H (14-36) U/L ALT 65 H (4-34) U/L TSH 8.410 H (0.465-4.680) mIU/L Ur Leukocyte Esterase Small H (Negative) Urine WBC 10 H (0-5) /hpf Ur Squamous Epith Cells 6 H (0-4) /hpf Urine Bacteria Rare H (None) /hpf Urine Opiates Screen (NotDetected) 05/23/23 05/23/23 05/23/23 Range/Units 00:29 02:10 02:10 WBC 11.4 H (4.0-11.0) k/uL Lymphocytes # (Manual) (1.0-4.8) k/uL Sodium 135 L (137-145) mmol/L Potassium (3.5-5.1) mmol/L Carbon Dioxide 19 L (22-30) mmol/L Creatinine 0.51 L (0.52-1.04) mg/dL AST (14-36) U/L ALT (4-34) U/L TSH (0.465-4.680) mIU/L Ur Leukocyte Esterase (Negative) Urine WBC (0-5) /hpf Ur Squamous Epith Cells (0-4) /hpf Urine Bacteria (None) /hpf Urine Opiates Screen Detected H (NotDetected)
[2023-05-23] MEDS ORDERED: LEVOTHYROXINE 125 MCG TAB PO SCH (06:30)
[2023-05-23] MEDS ORDERED: PROCHLORPERAZINE INJ 10 MG/2 ML VIAL IVP PRN (08:47)
[2023-05-23] MEDS ORDERED: HYDROCORTISONE 10 MG TAB PO SCH ×2 (09:00→21:00)
[2023-05-23] MEDS ORDERED: MAG HYDROX/AL HYDROX/SIMETH 30 ML, HYOSCYAMINE ELIXIR 10 ML, LIDOCAINE VISCOUS 10 ML PO ONE ×3 (09:53)
--- NOTE | 2023-05-23 09:59 | P.OBCN ---
History of Present Illness Consult date: 05/23/23 Reason for consult: ovarian cyst History of present illness: The patient is a 17-year-old 0 para 0 who presents the hospital with abdominal pain and significant nausea and vomiting. She has a history of adrenal insufficiency requiring glucocorticoid maintenance and reportedly has missed several of her doses recently. She reports that this is not uncommon for her to have these symptoms when she is to some extent and adrenal crisis. As result of her presentation, she had a computed tomography scan done through the emergency room which demonstrated a 2-3 cm left ovarian simple cyst. Pelvic ultrasound is pending at this time. On questioning, the patient reports that her cycles are somewhat irregular but her last period was approximately 3 weeks ago. She has no pelvic discomfort or pain or any other gynecologic concerns. Obstetrical history: 0 para 0, not on any form of hormonal contraceptive. Gynecologic history: Unremarkable Review of Systems Review of systems is confined to history of present illness. Past Medical History Additional Past Medical History / Comment(s): Common variable immune deficiency; adrenal insufficiency; Hashimotos Thyroiditis, alopecia, psoriasis History of Any Multi-Drug Resistant Organisms: None Reported Past Surgical History: No Surgical Hx Reported Past Psychological History: No Psychological Hx Reported Smoking Status: Never smoker Past Alcohol Use History: None Reported Past Drug Use History: None Reported Medications and Allergies Home Medications Medication Instructions Recorded Confirmed Type Levothyroxine Sodium [Synthroid] 62.5 mcg PO DAILY 07/30/22 05/23/23 History Hydrocortisone [Cortef] 10 mg PO BID 05/23/23 05/23/23 History Allergies Allergy/AdvReac Type Severity Reaction Status Date / Time No Known Allergies Allergy Verified 05/23/23 06:45 Exam Vital Signs Temp Pulse Resp BP Pulse Ox 05/23/23 08:55 90/54 05/23/23 08:00 97.6 F 89 16 83/55 99 05/23/23 06:30 65 16 93/73 99 05/23/23 06:00 72 16 98/47 100 05/23/23 05:00 65 18 93/53 100 05/23/23 04:30 62 18 93/53 100 05/23/23 03:30 60 18 98/57 100 05/23/23 02:30 62 17 113/83 98 05/23/23 02:00 74 18 115/79 100 05/23/23 00:30 79 18 103/67 100 05/22/23 23:00 89 18 110/76 100 05/22/23 22:47 83 17 110/76 100 05/22/23 22:30 83 17 107/82 98 05/22/23 22:00 80 17 97/66 99 05/22/23 19:08 97.8 F 92 20 105/74 Intake and Output 05/22/23 05/23/23 05/23/23 22:59 06:59 14:59 Other: Weight 53.524 kg In general, this is a well-developed, well-nourished white female in no acute distress. Examination is limited to abdominal exam which demonstrated her abdomen to be nondistended, soft, nontender, and without any palpable masses, hepatosplenomegaly, or hernias. Her extremities are without any cyanosis, clubbing, or edema and are nontender to palpation bilaterally. Pelvic examination is deferred. Results Result Diagrams: 05/23/23 02:10 05/23/23 02:10 Abnormal Lab Results - Last 24 Hours (Table) 05/22/23 05/22/23 05/23/23 Range/Units 20:03 20:27 00:29 WBC (4.0-11.0) k/uL Lymphocytes # (1.0-4.8) k/uL Lymphocytes # (Manual) 7.31 H (1.0-4.8) k/uL Sodium 136 L (137-145) mmol/L Potassium 5.7 H (3.5-5.1) mmol/L Carbon Dioxide (22-30) mmol/L Creatinine 0.45 L (0.52-1.04) mg/dL AST 86 H (14-36) U/L ALT 65 H (4-34) U/L TSH 8.410 H (0.465-4.680) mIU/L Ur Leukocyte Esterase Small H (Negative) Urine WBC 10 H (0-5) /hpf Ur Squamous Epith Cells 6 H (0-4) /hpf Urine Bacteria Rare H (None) /hpf Urine Opiates Screen (NotDetected) 05/23/23 05/23/23 05/23/23 Range/Units 00:29 02:10 02:10 WBC 11.4 H (4.0-11.0) k/uL Lymphocytes # 6.0 H (1.0-4.8) k/uL Lymphocytes # (Manual) (1.0-4.8) k/uL Sodium 135 L (137-145) mmol/L Potassium (3.5-5.1) mmol/L Carbon Dioxide 19 L (22-30) mmol/L Creatinine 0.51 L (0.52-1.04) mg/dL AST (14-36) U/L ALT (4-34) U/L TSH (0.465-4.680) mIU/L Ur Leukocyte Esterase (Negative) Urine WBC (0-5) /hpf Ur Squamous Epith Cells (0-4) /hpf Urine Bacteria (None) /hpf Urine Opiates Screen Detected H (NotDetected) Assessment and Plan (1) Ovarian cyst Current Visit: Yes Status: Acute Code(s): N83.209 - UNSPECIFIED OVARIAN CYST, UNSPECIFIED SIDE SNOMED Code(s): 60939699 Plan: Given the patient's menstrual history and timing of last menses, this cyst is almost certainly an incidental finding of a follicular cyst. In either case, it appears to be small and simple in nature and need have nothing done to manage it. Is almost certainly of 13 regarding her symptoms. I explained the natural history of ovulation to the patient and the presence of simple ovarian cysts on a regular basis when not on suppression of ovulatory function with contraception or other measures. She was satisfied with the explanation and does not require any follow-up for this particular problem unless she chooses it. I will otherwise sign off the case unless further input as required.
[2023-05-23] MEDS ORDERED: MAG HYDROX/AL HYDROX/SIMETH 30 ML, HYOSCYAMINE ELIXIR 10 ML, LIDOCAINE 2% GLYDO JELLY 1... PO ONE ×3 (10:00)
[2023-05-23 10:36] VITALS: TEMP 98.4
[2023-05-23] MEDS ORDERED: ACETAMINOPHEN TAB 325 MG TAB PO PRN (13:19)
[2023-05-23 13:28] VITALS: BP 90/49; PULSE 90; RESP 14
--- NOTE | 2023-05-23 16:56 | P.DS ---
Providers Date of admission: 05/23/23 01:51 Expected date of discharge: 05/23/23 Attending physician: Meron Bender MD Consults: 05/23/23 08:45 Consult Physician Routine Consulting Provider: Braxton Saxena Consult Reason/Comments: eval for intract abd pain, nausea, vomiting & findings of left ovarian cyst Do you want consulting provider notified?: Yes Primary care physician: [facility] Course: Discharge Diagnosis: Left ovarian cyst Intractable nausea and vomiting, resolved tolerated oral intake. Intractable abdominal pain likely to be secondary to ovarian cyst. History of common variable immune deficiency Mercy's thyroiditis Adrenal insufficiency stopped taking oral medications, cortisol < 1 Hospital Course: Patient is a very pleasant 17-year-old female with a past medical history of common variable immune deficiency, Mercy's thyroiditis, and adrenal insufficiency. She presented to the emergency department with a chief complaint of intractable nausea, vomiting, and abdominal pain. Patient reports a history of adrenal insufficiency requiring glucocorticoid maintenance and states that she has missed several doses of her medications recently. She underwent full evaluation in the emergency department. Vital signs upon arrival blood pressure 1 5/74, heart rate 92, respiratory rate 20, temp 97.8F, SpO2 of 96% on room air. Labs completed and reviewed. CBC unremarkable. BMP revealing hyponatremia with sodium 136 and hyperkalemia with potassium of 5.7 hemolyzed specimen with repeat potassium of 4.3. Liver enzymes slightly elevated with AST of 86 and ALT of 65. TSH high at 8.410 with normal free T4 of 0.94. CT abdomen and pelvis was completed showing a left ovarian cyst measuring 3.1 x 2.2 cm with mild free fluid in the pelvis. Order placed for pelvic ultrasound and consult OB as this is likely the cause of patient's intractable nausea and vomiting and abdominal pain. Patient declined having a pelvic ultrasound completed. She was evaluated by SOURCING COORDINATOR and they were in agreement that this is likely patient's cause of pain. Paver Layer discussed with patient possibility use of being started on oral contraceptives for preventative care and decreasing risk of further cyst development. Patient will follow-up outpatient in their office. Patient's diet slowly advanced. Patient tolerated oral intake and discharged home per patient and patient's mother's request. Patient medically stable for discharge at this time. Patient educated about importance of taking her medications. Pt reports able to take her oral medications, declines wanting IV corticosteroids or any other treatment at this time. Patient to follow up outpatient with PCP, endocrinology and gynecology. Physical examination: Patient seen and examined at bedside Vital signs reviewed and stable. General: Nontoxic, no distress and appears stated age. Derm: Skin warm and dry, normal coloration for ethnicity. Head: Atraumatic, normocephalic and symmetric. Eyes: EOMs intact, no lid lag, and anicteric sclera Mouth: no lip lesions, mucus membranes moist Cardiovascular: regular rate and rhythm with normal S1S2, no murmur, positive posterior tibial pulses bilaterally, and cap refill < 2 seconds. Lungs: Respirations even, regular, and unlabored on room air. Lungs CTA bilaterally, no rhonchi, no rales, no wheezing, and no accessory muscle usage. Abdominal: soft, nontender to palpation, no guarding, no appreciable organomegaly Ext: ROM intact. No gross muscle atrophy, no edema, no contractures Neuro: Speech clear, face symmetrical and CN II-XII grossly intact with no noted focal neuro deficits Psych: Alert and oriented to person, place, time, and situation. Appropriate and pleasant affect. A total of 35 minutes of time were spent preparing this complex discharge summary. Pt was discharged on 05/23/23 at 4:55 PM. Patient was seen independently by Nurse Practitioner. This document was prepared using [employer] dictation software. Please allow for e rrors in systems consultant while rare they do occur. Keven Escamilla NP rendered care for this patient independently, reviewed the findings and plan as documented in the note above. I did not physically speak with or examine the patient on this date. Patient Condition at Discharge: Stable Plan - Discharge Summary Discharge Rx Participant: No New Discharge Prescriptions: New Prochlorperazine [Compazine] 10 mg PO Q8H PRN #30 tab PRN Reason: Nausea And Vomiting Continue Levothyroxine Sodium [Synthroid] 62.5 mcg PO DAILY Hydrocortisone [Cortef] 10 mg PO BID Discharge Medication List Levothyroxine Sodium [Synthroid] 62.5 mcg PO DAILY 07/30/22 [History] Hydrocortisone [Cortef] 10 mg PO BID 05/23/23 [History] Prochlorperazine [Compazine] 10 mg PO Q8H PRN #30 tab 05/23/23 [Rx] Follow up Appointment(s)/Referral(s): Lauren Rosario MD [Primary Care Provider] - 1-2 days Braxton Saxena MD [STAFF PHYSICIAN] - 1 Week Patient Instructions/Handouts: Ovarian Cyst (DC), Acute Nausea and Vomiting (DC) Activity/Diet/Wound Care/Special Instructions: Activity: As tolerated. Diet: Regular diet Special Instructions: Take all of your medications as directed and remember to keep all of your doctor's appointments and follow-up as needed. Thank you for allowing us to participate in your care, it was truly a pleasure having you for our patient!!! Discharge Disposition: HOME SELF-CARE
== END 2023-05-23 17:27 | disposition home or self-care (01) ==
LOC: EC 18:57 → 6NMEDSUR 05-23 01:51
PROVIDERS: ADMIT Internal Medicine; ATTEND Internal Medicine
DX: R11.2 Nausea with vomiting, unspecified (principal); R10.13 Epigastric pain; N83.292 Other ovarian cyst, left side; D83.9 Common variable immunodeficiency, unspecified; E06.3 Autoimmune thyroiditis; E27.40 Unspecified adrenocortical insufficiency; T38.0X6A Underdosing of glucocorticoids and synthetic analogues, initial encounter; E87.1 Hypo-osmolality and hyponatremia; E87.5 Hyperkalemia; R74.01 Elevation of levels of liver transaminase levels; R42 Dizziness and giddiness; R55 Syncope and collapse; L40.9 Psoriasis, unspecified; L65.9 Nonscarring hair loss, unspecified; I45.10 Unspecified right bundle-branch block; Z20.822 Contact with and (suspected) exposure to COVID-19; Z79.890 Hormone replacement therapy; Z79.52 Long term (current) use of systemic steroids; Z79.899 Other long term (current) drug therapy
CPT/HCPCS: 96376; 96361; 96374; 96375; 99285; 36415; 84439; 80053; 80048; 84443; 82533; 82150; 83605; 83690; 85025 ×2; 81001; 84702; 80306; 87636; 74018; 74177; G0378; J2270 ×2; J2765; J2405 ×2; Q9967